=== PATIENT | female | born 1930 | race Caucasian/White ===

== ENCOUNTER 2017-05-17 09:54 | Emergency (ER) | payer MEDICARE ==
[2017-05-17 10:57] LABS: Urine Bilirubin Negative (NEGATIVE); Urine Blood Negative /ul (NEGATIVE); Urine Ketone Negative (NEGATIVE); Urine Nitrite Negative (NEGATIVE); Urine Protein Negative (NEGATIVE); Urine Urobilinogen Normal (NORMAL)
[2017-05-17 11:08] LABS: Urine Appearance Slightly Cloudy; Urine Color Yellow
[2017-05-17 11:10] LABS: Urine Bacteria 1+; Urine RBC None Seen /hpf (0-5); Urine WBC None Seen /hpf (0-5)
--- NOTE | 2017-05-17 11:16 | ERNOTE ---
ER Female HPI Date of Service: 05/17/17 Stated Complaint: UTI Time Seen by Provider: 05/17/17 10:33 Source: patient Exam Limitations: no limitations Immunizations: IMMUNIZATION HX Immunizations Up to Date Yes History of Influenza Vaccine Yes Hx Pneumococcal Vaccination Yes Allergies/Adverse Reactions: Allergies No Known Allergies Allergy (Unverified 01/26/14 06:11) Home Medications: HOME MEDICATIONS Aspirin [[place] Aspirin] 81 mg PO DAILY 01/26/14 [Last Taken Unknown] Folic Acid 1 mg PO DAILY 01/26/14 [Last Taken Unknown] Methotrexate Sodium [Trexall] 12.5 mg PO Q7D 01/26/14 [Last Taken 05/15/17] Simvastatin 20 mg PO HS 01/26/14 [Last Taken Unknown] Cefaclor 250 mg PO DAILY 05/17/17 [Last Taken Unknown] Docusate Sodium [Colace] 100 mg PO DAILY #30 cap 05/17/17 [Last Taken Unknown] - History of Present Illness Narrative: Pt. comes in with vaginal pain and burning with urination that radiates to his low back for two weeks. Pt. denies any SOB, CP, NVD, fever, recent illness but pt. has had hard stools with straining lately and has a hx of rectocele that she notes does have similar symptoms but she has a problem with chronic UTI and is concerned that she may have a UTI. Review of Systems - Review of Systems Constitutional: Present: no symptoms reported. Absent: recent illness, fever, chills, weakness, fatigue, malaise EYE: Present: no symptoms reported ENT: Present: no symptoms reported Respiratory: Present: no symptoms reported. Absent: shortness of breath, cough , wheezing Cardiology: Present: no symptoms reported. Absent: chest pain, palpitations, edema Gastrointestinal/Abdominal: Present: other - hard stools Genitourinary: Present: dysuria - burnign with urination, other - vaginal pressure Musculoskeletal: Present: no symptoms reported. Absent: back pain, joint pain Skin: Present: no symptoms reported. Absent: rash, change in color Neurological: Present: no symptoms reported. Absent: headache, dizziness/light- headedness, numbness, tingling All Other Systems: All systems neg except as marked - Patient's Past Medical History Patient History - Medical: UTI'S Patient History - Cancer: No Hx of Cancer Patient History - Surgical Procedures: Hysterectomy - Social History Living Situations: home Abuse History: No History of abuse Psych History: No pertinent hx Do you dip or chew tobacco: No Initiate information on Smoking Cessation: No Alcohol Use: rarely Drug Use: none - Immunizations Immunizations Up to Date: Yes Hx Pneumococcal Vaccination: Yes History of Influenza Vaccine: Yes Physical Exam - Physical Exam General Appearance: Present: wd/wn, alert, no apparent distress Head Exam: Present: normal inspection, no evidence of injury Eye Exam: Normal inspection: bilateral, PERRL: bilateral, EOMI: bilateral Respiratory: Present: no respiratory distress, normal breath sounds, no accessory muscle use, chest nontender, lungs clear Cardiovascular/Chest: Present: regular rate, rhythm, no murmur, normal peripheral pulses Pelvic Exam: Present: deferred - rectocele visible in vaginal vault grade 1 so speculum exam not indicated Extremity Exam: Present: normal inspection Neurological Exam: Present: alert, oriented, normal mood/affect, no motor/ sensory deficits Skin Exam: Present: normal color, warm/dry. Absent: pallor, skin rash ED Progress - Vital Signs Patient's Vital Signs:: I have reviewed the patient's vital signs. Vital Signs: Vital Signs 05/17/17 10:24 Temperature 36.8 C Pulse Rate 65 Respiratory 18 Rate Blood Pressure 171/79 O2 Sat by Pulse 99 Oximetry - Progress/Reassessment Chief Complaint: Urinary Tract Problems Plan - Plan Plan: Pt. ua does not indicate renal stones or uti at this time but pt. is on medication for chronic UTI so believe that pt. symptoms are related to her rectocele and will have pt. start on stool softener and follow up with her urologist. Departure Clinical Impression: Rectocele - Departure Disposition: Home self-care Condition: Good Instructions: Pelvic Organ Prolapse Additional Instructions: Please follow up with your urologist and start colace 100mg daily. Referrals: Leodan Crowe MD [Primary Care Provider] - Prescriptions: Docusate Sodium [Colace] 100 mg PO DAILY #30 cap
[2017-05-17 11:50] VITALS: BP 169/71
== END 2017-05-17 11:35 | disposition home or self-care (01) ==
LOC: ER 09:54
DX: N81.6 Rectocele (principal); Z87.440 Personal history of urinary (tract) infections